=== PATIENT | female | born 1955 | race Caucasian/White ===

== ENCOUNTER → 2018-07-06 | Day surgery (SDC) | payer BC ==
[~2018-07-06] MED LIST: COLESTIPOL HCL1 GM PO; LIDOCAINE HCL 2% LOCAL INJ 5 ML SDV VIAL INJ ONE; MIDAZOLAM HCL 2 MG/2 ML VIAL ONE; PRILOSEC10 M1 PO; PROBIOTIC & AC1 EACH PO; PROPOFOL IV EMULSION 10 MG/ML 50 ML VIAL ONE; ULTRACET TABLE1 EACH PO; VENTOLIN HFA18 GM PO; ZYRTEC10 M3 PO; [UNRECOGNIZED DRUG - OTHER] PO
--- NOTE | 2018-07-06 09:42 | Operative Report ---
DATE OF PROCEDURE: July 06, 2018 PROCEDURE PERFORMED: Colonoscopy. PREOPERATIVE DIAGNOSIS: History of colon polyps and recent diarrhea. POSTOPERATIVE DIAGNOSES 1. Colon polyp in the ascending colon. 2. Diverticulosis. 3. Internal hemorrhoids. PREOPERATIVE MEDICATIONS: Consisted of MAC anesthesia. Using the Olympus [id number] video colonoscope, it was inserted in the patient's rectum and advanced without difficulty to the level of the cecum. Photo documentation was obtained in the cecum. In the proximal ascending colon was a 4 mm size sessile adenomatous polyp, which was removed with electrical snare cautery. No other lesions were identified in the ascending colon or transverse colon, but as we got back into the descending colon and sigmoid, multiple diverticula were seen, but no evidence of a diverticulitis. In the sigmoid colon, because of the history of diarrhea, random biopsies were obtained looking for microscopic colitis. As we withdrew the colonoscope back into the rectum and back into the anal canal, internal hemorrhoids were noted. No fistulas or draining lesions were seen. The colonoscope was withdrawn from the patient's rectum, and the procedure was ended. Job#: [id number]
== END | disposition home or self-care (01) ==
LOC: OR 06:06
PROVIDERS: ATTEND Internal Medicine Gastroenterology
DX: R19.7 Diarrhea, unspecified (principal); D12.2 Benign neoplasm of ascending colon; K57.30 Diverticulosis of large intestine without perforation or abscess without bleeding; K64.8 Other hemorrhoids; K60.2 Anal fissure, unspecified; K62.89 Other specified diseases of anus and rectum; K21.9 Gastro-esophageal reflux disease without esophagitis; G47.33 Obstructive sleep apnea (adult) (pediatric); J45.909 Unspecified asthma, uncomplicated; Z88.0 Allergy status to penicillin; Z91.041 Radiographic dye allergy status; Z91.040 Latex allergy status; Z01.810 Encounter for preprocedural cardiovascular examination; Z98.890 Other specified postprocedural states; Z87.891 Personal history of nicotine dependence
CPT/HCPCS: 45380; 45385; 93005; J2001; J2250; 45378; 45384